=== PATIENT | male | born 1985 | race Caucasian/White ===

== ENCOUNTER 2024-01-14 20:07 | Outpatient (CLI) | payer SELFPAY | END 2024-01-14 20:08 | disposition EMS.NT | LOC: EMS 20:07 | DX: S81.831A Puncture wound without foreign body, right lower leg, initial encounter (principal); S81.832A Puncture wound without foreign body, left lower leg, initial encounter; S81.812A Laceration without foreign body, left lower leg, initial encounter; W54.0XXA Bitten by dog, initial encounter; Y93.01 Activity, walking, marching and hiking; Y92.480 Sidewalk as the place of occurrence of the external cause ==

== ENCOUNTER 2024-01-14 21:14 | Emergency (ER) | payer MEDICAID, OTHER ==
[2024-01-14] MEDS: LIDOCAINE JELLY 2% 6 ML JEL.PF.APP TOP STA (21:45)
[2024-01-14] MEDS: TETANUS/DIPHTHERIA/PERTUSSIS 0.5 ML SYRINGE IM ONE (21:50)
[2024-01-14] MEDS: BACITRACIN ZINC OINT 1 PACKET TOP STA (22:26)
[2024-01-14] MEDS: AMOX/CLAV 875 MG/125 MG TABLET PO STA (22:39)
--- NOTE | 2024-01-14 22:47 | ED Physician Documentation ---
PD HPI LOWER EXT INJURY - Stated complaint Stated Complaint: DOG BITE - Chief complaint Chief Complaint: Laceration - History obtained from History obtained from: Patient - History of Present Illness PD HPI LOW EXT INJURY LOCATION: Right, Left, Lower leg Type of injury: Other (dog bite) Where injury occurred: Street Timing - onset: Today Timing - duration: Hours Timing - details: Abrupt onset, Still present Improved by: Rest, Immobilization Worsened by: Moving, Palpating Associated symptoms: No: Weakness, Numbness, Tingling, Swelling Similar symptoms before: Has not had sx before Recently seen: Not recently seen - Additional information Additional information: Previously well Ammon Mueller is a 38-year-old male who was walking in his neighborhood when a dog began to bark at him. The patient backed away the dog came after him and bit him in the legs. Review of Systems Constitutional: denies: Fever Ears: denies: Ear pain Nose: denies: Congestion Throat: denies: Sore throat Respiratory: denies: Cough GI: denies: Nausea, Vomiting, Constipation, Diarrhea PD PAST MEDICAL HISTORY - Past Medical History Past Medical History: Yes Psych: ADD/ADHD - Past Surgical History Past Surgical History: No - Present Medications Home Medications: Ambulatory Orders Medication Instructions Recorded Confirmed Dextroamphetamine/Amphetamine 04/03/15 04/03/15 [Adderall 30 mg Tablet] Amox/Clav 875/125 [Augmentin] 1 each PO Q12H #10 tablet 01/14/24 - Allergies Allergies/Adverse Reactions: Allergies Allergy/AdvReac Type Severity Reaction Status Date / Time No Known Drug Allergies Allergy Verified 01/14/24 21:22 - Social History Does the pt smoke?: No Smoking Status: Never smoker Does the pt drink ETOH?: No Does the pt have substance abuse?: No - Immunizations Immunizations are current?: No - POLST Patient has POLST: No PD ED PE NORMAL - Vitals Vital signs reviewed: Yes (Hypertensive mild) - General General: Alert and oriented X 3, No acute distress, Well developed/nourished - HEENT HEENT: Atraumatic, PERRL, EOMI - Respiratory Respiratory: No respiratory distress - Derm Derm: Normal color, Warm and dry, No rash - Extremities Extremities: No deformity, No edema, Other (There is a 3-1/2 cm laceration to the left calf posteriorly that does not appear to involve deeper structures there is no foreign material in the wound. This is a deep laceration that penetrates the epidermis but not the dermis. 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 All of these are left open they are cleansed extensively the patient is given a tetanus booster and placed onto Augmentin. Departure - Departure Disposition: 01 Home, Self Care Clinical Impression: Dog bite Qualifiers: Encounter type: initial encounter Qualified Code(s): W54.0XXA - Bitten by dog, initial encounter Condition: Stable Instructions: ED Bite Dog Follow-Up: Brigitte Oliver PA-C [Primary Care Provider] - Prescriptions: Amox/Clav 875/125 [Augmentin] 1 each PO Q12H #10 tablet Comments: Ammon, today it looks like you were bit by a dog in multiple places and these are all on extremities and we will leave the wound open. This allows drainage from any trapped infection. With a dog bite we do need to place you on a prophylactic antibiotic for about 5 days. Our expectations for the appearance of the wound are that there should be some redness right around the margins of the wound about 1 to 2 mm of redness in about 3 days. There may be some straw- colored drainage from the wound as well. Isaiah pus drainage of copious amounts of pus or redness that extends inches around the wound are not expected. Today you were given a dose of Augmentin in the emergency department and I have E scribed the remainder of the course to the [facility] in [place]. You are given a tetanus booster today as well. Forms: PCP List Discharge Date/Time: 01/14/24 22:59
[2024-01-14 23:06] VITALS: BP 153/88; O2SAT 95
== END 2024-01-14 22:59 | disposition home or self-care (01) ==
LOC: ED 21:14
DX: S81.812A Laceration without foreign body, left lower leg, initial encounter (principal); S81.831A Puncture wound without foreign body, right lower leg, initial encounter; S81.832A Puncture wound without foreign body, left lower leg, initial encounter; S61.531A Puncture wound without foreign body of right wrist, initial encounter; W54.0XXA Bitten by dog, initial encounter; Y93.01 Activity, walking, marching and hiking
CPT/HCPCS: 90471; 90715; 99283; A9270